=== PATIENT | male | born 1945 | race Caucasian/White ===

== ENCOUNTER → 2022-02-11 | Outpatient (CLI) | payer MEDICARE | LOC: CARD 12:48 | PROVIDERS: ATTEND Internal Medicine Cardiovascular Disease | DX: I35.8 Other nonrheumatic aortic valve disorders (principal) | CPT/HCPCS: 93306 ==

== ENCOUNTER → 2022-03-11 | Outpatient (CLI) | payer MEDICARE, MEDICAID ==
[~2022-03-11] MED LIST: REGADENOSON 0.4 MG/5 ML SYR (LEXISCAN) IV ONE
[2022-03-11] MEDS: CATHETER FLUSH 10 ML SYR IVP PRN ×2 (12:40→13:20)
[2022-03-11 13:12] VITALS: BP 178/88
--- NOTE | 2022-03-13 07:52 | STRESS TEST ---
DATE OF SERVICE: 03/11/2022 RESTING AND POST REGADENOSON TECHNETIUM-99M TETROFOSMIN SPECT CT IMAGING ORDERING PHYSICIAN: Traci Gray APRN PRIMARY PHYSICIAN: Dr. Hay. CLINICAL DIAGNOSIS: Sinus node dysfunction. Baseline images were carried out after injection of 10.2 mCi of technetium-99m Tetrofosmin. This was followed by 0.4 mg regadenoson and 31.9 mCi of technetium-99m Tetrofosmin for stress imaging. The electrocardiogram showed sinus rhythm and isolated premature ventricular contractions. There was nonspecific ST abnormality at baseline. There was evidence of left ventricular hypertrophy on the electrocardiogram. The electrocardiogram did not change significantly with the regadenoson infusion. Review of images at rest and following stress does not indicate any significant perfusion defects consistent with significant myocardial ischemia or infarction. Gated images show normal global left ventricular systolic function with normal regional wall motion. Left ventricular ejection fraction is calculated to be 69%. CONCLUSIONS: 1. No evidence of any significant myocardial ischemia or infarction on this study. 2. Normal regional wall motion. 3. Normal global left ventricular systolic function with a calculated ejection fraction of 69%. Job ID: [id number] DocumentID: [id number] Dictated Date: 03/13/2022 07:25:45 Director Chemistry Date: 03/13/2022 07:51:35 Dictated By: DESTINY HAY MD, MA, FACP, FACC,
== END ==
LOC: CARD 12:03
PROVIDERS: ATTEND Nurse Practitioner Family
DX: I49.8 Other specified cardiac arrhythmias (principal)
CPT/HCPCS: 78452; 93017; A9502